=== PATIENT | female | born 1975 | race African-American/Black ===

== ENCOUNTER 2016-11-06 19:31 | Emergency (ER) | payer SELFPAY ==
[~2016-11-06] VITALS: Ht 170.2 cm; Wt 93.9 kg
[2016-11-06 21:03] VITALS: BP 125/83
[2016-11-07] MEDS ORDERED: METHYLPREDNISOLONE SOD SUCC 125 MG/2 ML VIAL IM ONE (00:15)
[2016-11-07] MEDS ORDERED: DIPHENHYDRAMINE 25MG CAPSULE PO ONE (00:15)
== END 2016-11-07 01:12 | disposition home or self-care (01) ==
LOC: ER 19:31
DX: L50.9 Urticaria, unspecified (principal)
CPT/HCPCS: 96372; 99283; J2930; Q0163

== ENCOUNTER 2021-12-18 19:50 | Emergency (ER) | payer MEDICAID ==
[~2021-12-18] VITALS: Ht 167.6 cm; Wt 93.9 kg
[2021-12-19] MEDS ORDERED: HYDROCODONE/ACETAMINOPHEN 5/325MG TABLET PO ONE (01:30)
[2021-12-19 01:53] VITALS: BP 140/56
[2021-12-19] MEDS ORDERED: CIPHCO RIGHT EAR (02:07)
[2021-12-19] MEDS ORDERED: AZIT250T12 MT (02:07)
[2021-12-19] MEDS ORDERED: HYDR-4001 MT (02:07)
== END 2021-12-19 02:26 | disposition home or self-care (01) ==
LOC: ER 19:50
DX: H66.91 Otitis media, unspecified, right ear (principal); H60.91 Unspecified otitis externa, right ear; Z98.890 Other specified postprocedural states
CPT/HCPCS: 99283